=== PATIENT | female | born 1960 | race Caucasian/White ===

== ENCOUNTER → 2016-05-29 | Outpatient (CLI) | payer BC ==
[2016-05-29 10:44] LABS: HEMOGLOBIN 13.1 gm/dl (12.3-15.3); RED BLOOD COUNT 3.85 M/UL (4.00-5.10); WHITE BLOOD COUNT 3.2 K/UL (4.5-11.0)
== END ==
LOC: LAB 10:04
PROVIDERS: Internal Medicine Gastroenterology
DX: R10.31 Right lower quadrant pain (principal); Z88.5 Allergy status to narcotic agent; Z88.8 Allergy status to other drugs, medicaments and biological substances
CPT/HCPCS: 36415; 80053; 82150; 82607; 83690; 85025

== ENCOUNTER → 2016-05-30 | Outpatient (CLI) | payer BC | LOC: CT 14:48 | DX: R10.31 Right lower quadrant pain (principal); R10.13 Epigastric pain; K59.00 Constipation, unspecified; R93.3 Abnormal findings on diagnostic imaging of other parts of digestive tract | CPT/HCPCS: J7050; Q9962 ==

== ENCOUNTER → 2020-05-14 | Outpatient (CLI) | payer BC | LOC: ECHO 09:42 | DX: R01.2 Other cardiac sounds (principal); R00.2 Palpitations; B94.8 Sequelae of other specified infectious and parasitic diseases; I51.7 Cardiomegaly | CPT/HCPCS: ECHO; 93306 ==

== ENCOUNTER → 2020-11-07 | Outpatient (CLI) | payer BC ==
[~2020-11-07] VITALS: Ht 162.6 cm; Wt 62.1 kg
== END ==
LOC: OPSV 10-23 11:00
DX: M81.0 Age-related osteoporosis without current pathological fracture (principal)
CPT/HCPCS: 96365; J3489

== ENCOUNTER → 2021-04-22 | Outpatient (CLI) | payer BC | LOC: KOH-I 13:07 | DX: S92.314A Nondisplaced fracture of first metatarsal bone, right foot, initial encounter for closed fracture (principal) | CPT/HCPCS: 73630 ==